=== PATIENT | male | born 2000 | race Two or more races ===

== ENCOUNTER 2024-01-01 05:19 | Emergency (ER) | payer MEDICAID ==
[~2024-01-01] VITALS: Ht 182.9 cm; Wt 118.0 kg
[~2024-01-01 05:19] MED LIST: CLIN300C70 PO; GLIP5TAB12 PO; LISI2.5T47 PO; METF500T PO
[2024-01-01] MEDS ORDERED: AUG875T PO (06:50)
[2024-01-01] MEDS ORDERED: NAP500T PO (06:50)
[2024-01-01 06:54] VITALS: BP 134/82; TEMP 98
[2024-01-01] MEDS: KETOROLAC TROMETH 30 MG/ML 1ML VIAL IM ONE (06:54)
[2024-01-01 06:56] VITALS: PULSE 64; RESP 16; O2SAT 96
== END 2024-01-01 07:12 | disposition home or self-care (01) ==
LOC: ER 05:19
DX: L05.91 Pilonidal cyst without abscess (principal); F15.90 Other stimulant use, unspecified, uncomplicated; Z79.899 Other long term (current) drug therapy
CPT/HCPCS: 96372; 99283; J1885